=== PATIENT | female | born 1955 | race Caucasian/White ===

== ENCOUNTER 2019-12-22 17:13 | Inpatient (IN) | payer OTHER ==
--- NOTE | 2019-12-22 18:24 | RAD REPORT ---
EXAM DESCRIPTION: RAD - Chest Single View - 12/22/2019 6:15 pm CLINICAL HISTORY: AMS, UTI Chest pain. COMPARISON: CHEST PA AND LAT 2 VIEW dated 05/31/2015; CHEST SINGLE VIEW dated 03/26/2013 FINDINGS: Portable technique limits examination quality. The lungs are underinflated, resulting in vascular crowding. The heart is normal in size. No displace d fractures.
--- NOTE | 2019-12-22 18:33 | RAD REPORT ---
EXAM DESCRIPTION: CT - Head Brain Wo Cont - 12/22/2019 6:22 pm CLINICAL HISTORY: AMS Headache, drowsiness COMPARISON: Head Brain Wo Cont dated 08/26/2017; HEAD BRAIN W O CONTRAST dated 11/04/2008 TECHNIQUE: All CT scans are performed using dose optimization technique as appropriate and may inclu de automated exposure control or mA/KV adjustment according to patient size. FINDINGS: No intracranial hemorrhage, hydrocephalus or extra-axial fluid collection.There has been p rogressive brain atrophy since prior study with ex vacuo ventriculomegaly.No areas of brain edema or evidence of midline shift. The paranasal sinuses and mastoids are clear. The calvarium is intact. IMPRESSION: No acute intracranial abnormality. Moderate progressive brain atrophy is seen since the comparative study
[2019-12-22] MEDS ORDERED: NA CHLORIDE 0.9% 500 ML ONE (18:52)
[2019-12-22 19:33] LABS: Absolute Lymphocytes (CBC) 1.8 K/uL (0.7-4.9); Albumin 3.1 g/dL (3.4-5.0); Basophils % 0.3 % (0-1.3); Bilirubin Direct 0.4 mg/dL (0-0.2); Bilirubin Total 0.9 mg/dL (0.2-1.0); CKMB Creatine Kinase MB 1.3 ng/mL (0.3-3.6); Hematocrit 27.8 % (36.0-45.0); Lymphocytes % 15.5 % (15.3-44.8); MPV 9.3 fL (7.6-11.3); Potassium 3.3 mmol/L (3.5-5.1); Protein, Total 8.7 g/dL (6.4-8.2); RBC Red Blood Cell Count 3.29 M/uL (3.86-4.86); Troponin (Emerg Dept Use Only) 0.05 ng/mL (0.0-0.045)
[2019-12-22 19:35] LABS: Protime INR 1.27
[2019-12-22] MEDS ORDERED: POTASSIUM 25 MEQ EFFERV TAB ONE (20:34)
[2019-12-22 20:57] LABS: Urine Blood TRACE (NEG); Urine Glucose NEGATIVE (NEG); Urine Protein 2+ (NEG); Urine pH 5.5 (5.0-7.0)
[2019-12-22 21:06] LABS: Urine Coarse Granular Casts 0-5 /LPF (NONE SEEN)
[2019-12-22 21:07] LABS: Urine Bacteria 20-50 /HPF (<20); Urine Culture Reflex Order REFLEXED; Urine RBC <5 /HPF (NONE SEEN)
--- NOTE | 2019-12-22 21:19 | ER ---
Nurse's Notes [facility] Name: Rochelle Henderson Age: 64 yrs Sex: Female : 1955 Arrival Date: 12/22/2019 Time: 17:31 Bed 8 Private MD: Diagnosis: Urinary tract infection, site not specified;Dehydration;Rhabdomyolysis;Altered mental status, unspecified Presentation: 12/22 17:32 Presenting complaint: EMS states: SENT FROM [facility] FOR UTI. bp Transition of care: patient was received from another setting of care (long-term care facility), [facility]. Onset of symptoms is unknown. Risk Assessment: Do you want to hurt yourself or someone else? Patient reports no desire to harm self or others. Initial Sepsis Screen: Does the patient meet any 2 criteria? Altered Mental Status. No. Patient's initial sepsis screen is negative. Does the patient have a suspected source of infection? Yes: Dysuria/Frequency/Urgency/UTI. Care prior to arrival: IV initiated. 20 GA, in the left antecubital area, Glucose check: 178. 17:32 Method Of Arrival: EMS: [facility] bp 17:32 Acuity: OPAL 3 bp Triage Assessment: 17:32 General: Appears in no apparent distress. comfortable, Behavior is CONFUSED. Pain: bp Unable to use pain scale. Does not appear to understand pain scale. EENT: No deficits noted. Neuro: Level of Consciousness is awake, confused, Oriented to person, place. Cardiovascular: No deficits noted. Respiratory: No deficits noted. GI: No signs and/or symptoms were reported involving the gastrointestinal system. : No signs and/or symptoms were reported regarding the genitourinary system. Derm: No deficits noted. Musculoskeletal: No deficits noted. Historical: - Allergies: 17:48 Biaxin; bp 17:48 Sulfa (Sulfonamide Antibiotics); bp - Home Meds: 17:48 Unable to obtain [Active]; bp - PMHx: 17:48 Dementia; bp - Immunization history:: Adult Immunizations up to date. - Coronavirus screen:: The patient has NOT traveled to [place], [place], or [place] in the past 14 days. The patient has NOT had contact with known/suspected case of Coronavirus?. - Social history:: Smoking status: Patient denies any tobacco usage or history of. - Ebola Screening: : No symptoms or risks identified at this time. Screenin:32 Abuse screen: Denies threats or abuse. Denies injuries from another. Nutritional bp screening: No deficits noted. Tuberculosis screening: No symptoms or risk factors identified. Fall Risk None identified. Assessment: 17:32 General: SEE TRIAGE NOTE. bp 18:20 Reassessment: PT RETURNED FROM CT. PT REMAINS DISORIENTED AND UNCOOPERATIVE WITH ALL bp HEALTH CARE ACTIVITIES AND STAFF REQUESTS. FAMILY AT B/S ASSISTING WITH PT COMPLIANCE. 19:10 Reassessment: Patient appears in no apparent distress at this time. Patient and/or jb4 family updated on plan of care and expected duration. Pain level reassessed. Pt is A\T\Ox1 to self, family at the bedside reports this as being her normal. Respirations are even and unlabored. 20:00 Reassessment: Patient appears in no apparent distress at this time. No changes from jb4 previously documented assessment. Patient and/or family updated on plan of care and expected duration. Pain level reassessed. 21:00 Reassessment: Patient appears in no apparent distress at this time. No changes from jb4 previously documented assessment. Patient and/or family updated on plan of care and expected duration. Pain level reassessed. 22:00 Reassessment: Patient appears in no apparent distress at this time. No changes from jb4 previously documented assessment. Patient and/or family updated on plan of care and expected duration. Pain level reassessed. 23:00 Reassessment: Patient appears in no apparent distress at this time. No changes from jb4 previously documented assessment. Patient and/or family updated on plan of care and expected duration. Pain level reassessed. 12/23 00:00 Reassessment: Patient appears in no apparent distress at this time. No changes from jb4 previously documented assessment. Patient and/or family updated on plan of care and expected duration. Pain level reassessed. 00:57 Reassessment: Attempted to call report, on hold for 15 minutes, instructed to wait for [facility] call back. 01:30 Reassessment: Patient appears in no apparent distress at this time. Patient and/or jb4 family updated on plan of care and expected duration. Pain level reassessed. PT resting in bed, remains A\T\O to self. Family remains at the bedside. respirations even and unlabored. Vital Signs: 12/22 17:32 BP 95 / 60; Pulse 89; Resp 17; Temp 97.9; Pulse Ox 98% ; Weight 54.43 kg; bp 18:07 BP 100 / 58; Pulse 75; Resp 18; Pulse Ox 100% ; bp 18:45 BP 101 / 51; Pulse 73; Resp 16; Pulse Ox 99% ; bp 19:30 BP 102 / 57; Pulse 72; Resp 16; Pulse Ox 100% on R/A; jb4 20:30 BP 107 / 64; Pulse 76; Resp 16; Pulse Ox 96% on R/A; jb4 21:30 BP 101 / 66; Pulse 78; Resp 16; Pulse Ox 97% on R/A; jb4 22:30 BP 103 / 89; Pulse 83; Resp 16; Pulse Ox 97% on R/A; jb4 23:30 BP 104 / 67; Pulse 85; Resp 16; Pulse Ox 99% on R/A; jb4 12/23 00:30 BP 100 / 81; Pulse 75; Resp 16; Pulse Ox 100% on R/A; jb4 ED Course: 12/22 17:31 Patient arrived in ED. bp 17:32 Arm band placed on. bp 17:32 Patient has correct armband on for positive identification. Bed in low position. Call bp light in reach. Side rails up X2. Adult w/ patient. 17:35 Maintain EMS IV. Dressing intact. Good blood return noted. Site clean \T\ dry. Gauge \T\ bp site: 20 GAUGE LEFT AC. 17:39 Julio Pritchett NP is PHCP. pm1 17:39 Zaire Lujan MD is Attending Physician. pm1 17:46 Bennett Gomes, JENNYFER is Primary Nurse. bp 17:47 Triage completed. bp 18:19 Chest Single View XRAY In Process Unspecified. EDMS 18:23 CT Head Brain wo Cont In Process Unspecified. EDMS 18:45 Inserted saline lock: 20 gauge in right wrist, using aseptic technique. Blood collected.aa5 18:45 Initial lab(s) drawn, by me, sent to lab. First set of blood cultures drawn by me. aa5 21:16 Ken Mendoza MD is Hospitalizing Provider. pm1 12/23 01:30 No provider procedures requiring assistance completed. Patient admitted, IV remains in jb4 place. Administered Medications: 12/22 17:59 CANCELLED (Physician Discretion): NS 0.9% (30 ml/kg) 30 ml/kg IV at bolus once; Sepsis pm1 Protocol 18:52 Drug: NS 0.9% 500 ml Route: IV; Rate: bolus; Site: right wrist; bp 21:00 Drug: Potassium Effervescent Tablet 50 mEq Route: PO; jb4 21:30 Follow up: Response: No adverse reaction 4 21:50 Drug: NS 0.9% 1000 ml Route: IV; Rate: 100 ml/hr; Site: right hand; jb4 12/23 00:33 Follow up: Response: No adverse reaction; IV Status: Infusion continued upon transfer jb4 12/22 21:50 Drug: Rocephin 1 grams Route: IV; Rate: calculated rate; Site: right hand; jb4 21:52 Follow up: Response: No adverse reaction; IV Status: Completed infusion; IV Intake: [id number] Intake: 21:52 IV: 10ml; Total: 10ml. jb4 Outcome: 21:18 Decision to Hospitalize by Provider. pm1 12/23 01:30 Admitted to Tele accompanied by nurse, via stretcher, room 412, with chart, Report jb4 called to JENNYFER Cobb Condition: stable Discharge instructions given to family, Instructed on the need for admit, Demonstrated understanding of instructions. 01:32 Patient left the ED. jb4 Signatures: Dispatcher [employer] Katarina Eugene, RN RN aa5 Julio Pritchett, RENAL DIALYSIS TECHNICIAN RENAL DIALYSIS TECHNICIAN pm1 Spencer Cavazos RN RN jb4 Bennett Gomes RN RN bp Corrections: (The following items were deleted from the chart) 12/22 17:47 17:32 Presenting complaint: bp bp
--- NOTE | 2019-12-22 21:19 | EDPHYS ---
Physician Documentation [facility] Name: Rochelle Henderson Age: 64 yrs Sex: Female : 1955 Arrival Date: 12/22/2019 Time: 17:31 Bed 8 Private MD: ED Physician Zaire Lujan HPI: 12/22 18:06 This 64 yrs old Female presents to ER via EMS with complaints of Altered pm1 mental status, Urinary Problem. 18:06 The patient presents with decreased mental status. Onset: The symptoms/episode pm1 began/occurred 4 day(s) ago. Possible causes: UTI. 18:06 Associated signs and symptoms: Pertinent positives: Decreased appetite, occasional pm1 vomiting, and one episode of diarrhea, Pertinent negatives:. Current symptoms: In the emergency department the patient's symptoms have improved, appears to be at her baseline. Patient's baseline: Neuro: not alert, Motor: no deficits, The patient has a previous history of Frontotemporal Degeneration Dementia. Patient with decreased appetite on and she typically has no impulse control to eating so they figured something was wrong. Had foul smelling urine. Did their own urine dip stick and called Dr. Becker for ABX therapy. He prescribed Macrobid but it appeared that the patient did not improve. Has had a fall with no apparent injury but unknown down time. Historical: - Allergies: 17:48 Biaxin; bp 17:48 Sulfa (Sulfonamide Antibiotics); bp - Home Meds: 17:48 Unable to obtain [Active]; bp - PMHx: 17:48 Dementia; bp - Immunization history:: Adult Immunizations up to date. - Coronavirus screen:: The patient has NOT traveled to [place], [place], or [place] in the past 14 days. The patient has NOT had contact with known/suspected case of Coronavirus?. - Social history:: Smoking status: Patient denies any tobacco usage or history of. - Ebola Screening: : No symptoms or risks identified at this time. ROS: 18:06 Unable to obtain ROS due to baseline dementia. pm1 18:06 Unable to obtain ROS due to information obtained from daugther. 18:06 Constitutional: Negative for fever, chills, and weight loss, Positive for weight gain pm1 18:06 MS/Extremity: Negative for injury and deformity, Skin: Negative for injury, rash, and discoloration. 18:06 Eyes: Negative for injury, pain, redness, and discharge, ENT: Negative for injury, pain, and discharge, Neck: Negative for injury, pain, and swelling, Cardiovascular: Negative for chest pain, palpitations, and edema, Respiratory: Negative for shortness of breath, cough, wheezing, and pleuritic chest pain, Abdomen/GI: Negative for abdominal pain, nausea, vomiting, diarrhea, and constipation, Back: Negative for injury and pain. 18:06 : Positive for foul smelling urine. 18:06 Neuro: Positive for altered mental status, generalized weakness. Exam: 18:06 Head/Face: Normocephalic, atraumatic. pm1 18:06 Neck: Trachea midline, no thyromegaly or masses palpated, and no cervical lymphadenopathy. Supple, full range of motion without nuchal rigidity, or vertebral point tenderness. No Meningismus. Chest/axilla: Normal chest wall appearance and motion. Nontender with no deformity. No lesions are appreciated. Cardiovascular: Regular rate and rhythm with a normal S1 and S2. No gallops, murmurs, or rubs. No pulse eficits. Respiratory: Lungs have equal breath sounds bilaterally, clear to auscultation and percussion. No rales, rhonchi or wheezes noted. No increased work of breathing, no retractions or nasal flaring. Abdomen/GI: Soft, non-tender, with normal bowel sounds. No distension or tympany. No guarding or rebound. No evidence of tenderness throughout. Back: No spinal tenderness. No costovertebral tenderness. Full range of motion. Skin: Warm, dry with normal turgor. Normal color with no rashes, no lesions, and no evidence of cellulitis. MS/ Extremity: Pulses equal, no cyanosis. Neurovascular intact. Full, normal range of motion. 18:06 Constitutional: The patient appears awake, non-diaphoretic, non-toxic, well developed, well hydrated, well groomed, well nourished. 18:06 Eyes: Periorbital structures: appear normal, Extraocular movements: intact throughout, Conjunctiva: normal. 18:06 ENT: External ear(s): are unremarkable, Ear canal(s): are normal, TM's: are normal, Nose: is normal. 18:06 Neuro: Orientation: unable to test, family reports at her baseline, Motor: moves all fours. Vital Signs: 17:32 BP 95 / 60; Pulse 89; Resp 17; Temp 97.9; Pulse Ox 98% ; Weight 54.43 kg; bp 18:07 BP 100 / 58; Pulse 75; Resp 18; Pulse Ox 100% ; bp 18:45 BP 101 / 51; Pulse 73; Resp 16; Pulse Ox 99% ; bp 19:30 BP 102 / 57; Pulse 72; Resp 16; Pulse Ox 100% on R/A; jb4 20:30 BP 107 / 64; Pulse 76; Resp 16; Pulse Ox 96% on R/A; jb4 21:30 BP 101 / 66; Pulse 78; Resp 16; Pulse Ox 97% on R/A; jb4 22:30 BP 103 / 89; Pulse 83; Resp 16; Pulse Ox 97% on R/A; jb4 23:30 BP 104 / 67; Pulse 85; Resp 16; Pulse Ox 99% on R/A; jb4 12/23 00:30 BP 100 / 81; Pulse 75; Resp 16; Pulse Ox 100% on R/A; jb4 MDM: 12/22 17:41 Patient medically screened. pm1 21:15 Data reviewed: vital signs. Data interpreted: Pulse oximetry: on room air is 100 %. pm1 Interpretation: normal. Counseling: I had a detailed discussion with the patient and/or guardian regarding: the historical points, exam findings, and any diagnostic results supporting the discharge/admit diagnosis, lab results, radiology results, the need for further work-up and treatment in the hospital. 21:26 Physician consultation: Ken Mendoza MD was called at 21:26, was contacted at 21:26, pm1 regarding admission, patient's condition, and will see patient. 12/22 17:59 Order name: Amylase, Serum; Complete Time: 19:41 pm1 12/22 17:59 Order name: Basic Metabolic Panel; Complete Time: 19:41 pm1 12/22 17:59 Order name: Blood Culture Adult (2) pm1 12/22 17:59 Order name: CBC with Diff; Complete Time: 19:41 pm1 12/22 17:59 Order name: Ckmb; Complete Time: 19:41 pm1 12/22 17:59 Order name: CPK; Complete Time: 19:41 pm12/22 17:59 Order name: Lactate; Complete Time: 19:41 pm12/22 17:59 Order name: LFT's; Complete Time: 19:41 pm12/22 17:59 Order name: Lipase; Complete Time: 19:41 pm12/22 17:59 Order name: Procalcitonin; Complete Time: 20:19 pm12/22 17:59 Order name: Protime (+inr); Complete Time: 19:41 pm12/22 17:59 Order name: Ptt, Activated; Complete Time: 19:41 pm12/22 17:59 Order name: Troponin (emerg Dept Use Only); Complete Time: 19:41 pm12/22 17:59 Order name: Urine Microscopic Only; Complete Time: 21:11 pm12/22 17:59 Order name: Chest Single View XRAY; Complete Time: 19:01 pm12/22 17:59 Order name: Accucheck; Complete Time: 18:42 pm12/22 17:59 Order name: CT Head Brain wo Cont; Complete Time: 19:01 12/22 20:36 Order name: Urine Dipstick--Ancillary (enter results); Complete Time: 21:03 2 12/22 21:11 Order name: Urine Culture [facility] 12/22 22:56 Order name: CONS Pharmacy Consult [facility] 12/22 22:56 Order name: Regular [facility] 12/22 22:56 Order name: CBC with Automated Diff [facility] 12/22 22:56 Order name: CBC with Automated Diff [facility] 12/22 22:56 Order name: Comprehensive Metabolic Panel [facility] 12/22 22:56 Order name: Comprehensive Metabolic Panel [facility] 12/22 17:59 Order name: Cardiac monitoring; Complete Time: 18:42 pm12/22 17:59 Order name: EKG - Nurse/Tech; Complete Time: 20:27 pm12/22 17:59 Order name: IV Saline Lock - Large Bore; Complete Time: 18:42 pm12/22 17:59 Order name: Labs collected and sent; Complete Time: 18:42 pm12/22 17:59 Order name: O2 Per Protocol; Complete Time: 18:42 pm12/22 17:59 Order name: O2 Sat Monitoring; Complete Time: 18:43 pm1 12/22 17:59 Order name: Urine Dipstick-Ancillary (obtain specimen); Complete Time: 20:27 pm1 12/22 18:50 Order name: Straight Cath - Urine; Complete Time: 21:13 iw Administered Medications: 17:59 CANCELLED (Physician Discretion): NS 0.9% (30 ml/kg) 30 ml/kg IV at bolus once; Sepsis pm1 Protocol 18:52 Drug: NS 0.9% 500 ml Route: IV; Rate: bolus; Site: right wrist; bp 21:00 Drug: Potassium Effervescent Tablet 50 mEq Route: PO; [facility] 21:30 Follow up: Response: No adverse reaction [facility] 21:50 Drug: NS 0.9% 1000 ml Route: IV; Rate: 100 ml/hr; Site: right hand; [facility] 12/23 00:33 Follow up: Response: No adverse reaction; IV Status: Infusion continued upon transfer [facility] 12/22 21:50 Drug: Rocephin 1 grams Route: IV; Rate: calculated rate; Site: right hand; [facility] 21:52 Follow up: Response: No adverse reaction; IV Status: Completed infusion; IV Intake: [id number] Disposition: 12/23 09:00 Co-signature as Attending Physician, Zaire Lujan MD I agree with the assessment and [facility] plan of care. Disposition: 12/22/19 21:18 Hospitalization ordered by Ken Mendoza for Inpatient Admission. Preliminary diagnosis are Urinary tract infection, site not specified, Dehydration, Rhabdomyolysis, Altered mental status, unspecified. - Bed requested for Telemetry/MedSurg (Inpatient). - Status is Inpatient Admission. jb4 - Condition is Stable. - Problem is new. - Symptoms have improved. UTI on Admission? Yes Signatures: Dispatcher [employer] EDZaire Gibson MD MD cha Williams, Irene, RN RN iw Garcia, Cindy, RN RN cg Marinas, Patrick, NP VENDER pm1 Spencer Cavazos RN RN jb4 Peltier, Brian, RN RN bp Corrections: (The following items were deleted from the chart) 12/22 17:59 17:59 NS 0.9% (30 ml/kg) 30 ml/kg IV at bolus once; Sepsis Protocol ordered. pm1 pm1 21:47 18:06 This 64 yrs old Female presents to ER via EMS with complaints of pm1 Urinary Problem. pm1 23:13 21:18 Hospitalization Ordered by Ken Mendoza MD for Inpatient Admission. Preliminary cg diagnosis is Urinary tract infection, site not specified; Dehydration; Rhabdomyolysis; Altered mental status, unspecified. Bed requested for Telemetry/MedSurg (Inpatient). Status is Inpatient Admission. Condition is Stable. Problem is new. Symptoms have improved. UTI on Admission? Yes. pm1 12/23 01:32 12/22 23:13 12/22/2019 21:18 Hospitalization Ordered by Ken Mendoza MD for Inpatient jb4 Admission. Preliminary diagnosis is Urinary tract infection, site not specified; Dehydration; Rhabdomyolysis; Altered mental status, unspecified. Bed requested for Telemetry/MedSurg (Inpatient). Status is Inpatient Admission. Condition is Stable. Problem is new. Symptoms have improved. UTI on Admission? Yes. cg
[2019-12-22] MEDS ORDERED: CEFTRIAXONE/SWI 1gm 1 GM/10 ML SYR ONE (21:33)
[2019-12-22] MEDS ORDERED: NA CHLORIDE 0.9% 1,000 ML ONE (21:33)
[2019-12-22] MEDS ORDERED: ONDANSETRON 4 MG/2 ML VIAL IV PRN (22:54)
[2019-12-22] MEDS ORDERED: MORPHINE 2 MG/ML SYR IV PRN (22:54)
[2019-12-22] MEDS ORDERED: ACETAMINOPHEN 500 MG TAB PO PRN (22:54)
[2019-12-23] MEDS: NA CHLORIDE 0.9% 1,000 ML IV SCH ×3 (02:00→21:34)
[2019-12-23 02:46] VITALS: BMI 20.5
[2019-12-23 04:17] LABS: Absolute Lymphocytes (CBC) 0.9 K/uL (0.7-4.9); Basophils % 0.2 % (0-1.3); Hematocrit 31.3 % (36.0-45.0); Lymphocytes % 11.4 % (15.3-44.8)
[2019-12-23 04:36] LABS: Albumin 2.6 g/dL (3.4-5.0); Bilirubin Total 0.6 mg/dL (0.2-1.0); Potassium 3.7 mmol/L (3.5-5.1); Protein, Total 7.6 g/dL (6.4-8.2)
--- NOTE | 2019-12-23 07:51 | P.HP ---
Certification for Inpatient Patient admitted to: Observation With expected LOS: <2 Midnights Patient will require the following post-hospital care: None Practitioner: I am a practitioner with admitting privileges, knowledge of patient current condition, hospital course, and medical plan of care. Services: Services provided to patient in accordance with Admission requirements found in Title 42 Section 412.3 of the Code of Federal Regulations Patient History Date of Service: 12/22/19 Reason for admission: UTI; altered mental status; dehydration History of Present Illness: Patient is a 64-year-old female who has a history of outlined as dementia. She was diagnosed at the age of 62. she has been living at the Memory Care Unit at [facility]. Her family had noted she was not herself over the last couple of days. She had a urinalysis /urine dipstick performed and oral antibiotics were started. This was started by a nurse practitioner in the local area. Patient became unresponsive, and her granddaughter called EMS because they were not able to move her. Patient was brought to the hospital for further evaluation. Allergies levofloxacin [From Levaquin] Allergy (Mild, Verified 03/26/13 12:17) Itching/Hives/Rash Sulfa (Sulfonamide Antibiotics) Allergy (Mild, Verified 03/26/13 12:17) Hives/Rash sulfamethoxazole [From Bactrim] Allergy (Mild, Verified 03/26/13 12:17) Itching/Hives/Rash trimethoprim [From Bactrim] Allergy (Mild, Verified 03/26/13 12:17) Itching/Hives/Rash clarithromycin [From Biaxin] Allergy (Unverified 06/03/15 17:15) Unknown Home Medications: Melatonin 2 tab PO BEDTIME 12/23/19 Nitrofurantoin Monohyd/M-Cryst [Macrobid 100 mg Capsule] 100 mg PO BID 12/23/19 Olanzapine [Zyprexa] 5 mg PO BEDTIME 12/23/19 Sertraline HCl 100 mg PO DAILY 12/23/19 - Past Medical/Surgical History Has patient received pneumonia vaccine in the past: No Diabetic: No -: dementia Past Surgical History: Unable to obtain - Family History Mother Medical History: Diabetes Notes: DEMENTIA Father Medical History: Diabetes, Cancer - Social History Smoking Status: Never smoker Alcohol use: No CD- Drugs: No Caffeine use: No Place of Residence: [place] Review of Systems 10-point ROS is otherwise unremarkable Physical Examination - Vital Signs Temperature: 97.7 F Blood Pressure: 109/55 Pulse: 90 Respirations: 16 Pulse Ox (%): 98 - Physical Exam General: Alert, Demented HEENT: Atraumatic, PERRLA, Mucous membr. moist/pink, EOMI, Sclerae nonicteric Neck: Supple, 2+ carotid pulse no bruit, No LAD, Without JVD or thyroid abnormality Respiratory: Clear to auscultation bilaterally, Normal air movement Cardiovascular: Regular rate/rhythm, Normal S1 S2, No murmurs Gastrointestinal: Normal bowel sounds, Soft and benign, Non-distended, No tenderness Musculoskeletal: No clubbing, No swelling, No tenderness Integumentary: No rashes Neurological: Normal gait, Normal speech, Normal tone, Sensation intact, Cranial nerves 3-12 intact, Normal affect, Abnormal strength ( Patient with generalized weakness -4/5) Lymphatics: No axilla or inguinal lymphadenopathy - Studies Laboratory Data (last 24 hrs) 12/22/19 18:45: PT 14.9 H, INR 1.27, APTT 35.1 12/22/19 18:45: WBC 11.4 H, Hgb 9.3 L, Hct 27.8 L, Plt Count 283 12/22/19 18:45: Sodium 142, Potassium 3.3 L, BUN 25 H, Creatinine 1.15, Glucose 107 H, Total Bilirubin 0.9, AST 78 H, ALT 56, Alkaline Phosphatase 86, Amylase 94, Lipase 159 Microbiology Data (last 24 hrs): 12/22/19 19:05 Blood - Blood Anaerobic Blood Culture - Final Assessment & Plan - Problems (Diagnosis) (1) Toxic encephalopathy Current Visit: Yes Status: Acute (2) Altered mental status Current Visit: Yes Status: Acute (3) Urinary tract infection Current Visit: Yes Status: Acute (4) 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 IV fluids and IV antibiotics 2. UA with microscopy and urine cultures 3. physical therapy evaluation 4. await culture results 5. monitor renal function 6. GI and DVT prophylaxis Discharge Plan: Home Plan to discharge in: 48 Hours - Advance Directives Does patient have a Living Will: No Does patient have a Durable POA for Healthcare: No - Code Status/Comfort Care Code Status Assessed: Yes Code Status: Full Code Critical Care: No Time Spent Managing PTS Care (In Minutes): 50
--- NOTE | 2019-12-23 15:54 | P.PN ---
Subjective Date of Service: 12/23/19 Chief Complaint: UTI; altered mental status; dehydration Patient is more awake and interactive today. She has poor memory. She denies any complain. No issues overnight. No agitation reported. Physical Examination - Vital Signs Temperature: 97.7 F Blood Pressure: 102/57 Pulse: 83 Respirations: 15 Pulse Ox (%): 95 - Physical Exam General: In no apparent distress, Demented HEENT: Normocephalic, Mucous membr. moist/pink Neck: Supple, JVD not distended Respiratory: Clear to auscultation bilaterally, Normal air movement Cardiovascular: No edema, Regular rate/rhythm, Normal S1 S2 Gastrointestinal: Normal bowel sounds, Non-distended Integumentary: No rashes Neurological: Normal speech, Other (Nonfocal.) - Studies Laboratory Data (last 24 hrs) 12/22/19 18:45: PT 14.9 H, INR 1.27, APTT 35.1 12/22/19 18:45: WBC 11.4 H, Hgb 9.3 L, Hct 27.8 L, Plt Count 283 12/22/19 18:45: Sodium 142, Potassium 3.3 L, BUN 25 H, Creatinine 1.15, Glucose 107 H, Total Bilirubin 0.9, AST 78 H, ALT 56, Alkaline Phosphatase 86, Amylase 94, Lipase 159 Microbiology Data (last 24 hrs): 12/22/19 19:05 Blood - Blood Anaerobic Blood Culture - Final Assessment And Plan - Current Problems (Diagnosis) (1) Altered mental status Current Visit: Yes Status: Acute (2) 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 Continue IV Rocephin Follow urine culture Continue Zoloft. Hold olanzapine. Will consider risperidone was less sedating the patient get agitation. Periodically reorientation. Continue melatonin for insomnia.
--- NOTE | 2019-12-23 15:57 | EKG ---
Test Date: 2019-12-22 Test Time: 20:19:51 Surgical Orderly: PHIL MEASUREMENT RESULTS: Intervals: Rate: 77 WY: 88 QRSD: 86 QT: 434 QTc: 491 [place]: P: 39 WY: 88 QRS: 59 T: 46 INTERPRETIVE STATEMENTS: Sinus rhythm with short [place] Prolonged QT Abnormal ECG Compared to ECG 08/26/2017 12:07:02 Short [place] interval now present Prolonged QT interval now present Electronically Signed On 12-23-19 15:52:17 AUDIO RECORDING ENGINEER by Ceasar Dennis
[2019-12-23] MEDS: CEFTRIAXONE/SWI 1gm 1 GM/10 ML SYR IV SCH (20:18)
[2019-12-23] MEDS: MELATONIN 5 MG TABLET PO SCH (20:19)
[2019-12-23] MEDS ORDERED: MELATONIN PO SCH (21:00)
[2019-12-23] MEDS ORDERED: OLANZapine 2.5 MG TAB ONE (22:29)
[2019-12-23] MEDS ORDERED: OLANZapine 10 MG TABLET PO SCH (23:00)
[2019-12-24] MEDS: NA CHLORIDE 0.9% 1,000 ML IV SCH ×2 (01:40→11:03)
[2019-12-24 05:37] LABS: Absolute Lymphocytes (CBC) 1.3 K/uL (0.7-4.9); Basophils % 0.3 % (0-1.3); Hematocrit 30.3 % (36.0-45.0); Lymphocytes % 16.9 % (15.3-44.8); MPV 8.8 fL (7.6-11.3); RBC Red Blood Cell Count 3.49 M/uL (3.86-4.86)
[2019-12-24 05:58] LABS: Potassium 3.8 mmol/L (3.5-5.1)
[2019-12-24] MEDS: SERTRALINE HCL 100 MG TAB PO SCH (09:13)
[2019-12-24 09:33] VITALS: O2SAT 98
--- NOTE | 2019-12-24 13:18 | P.PN ---
Subjective Date of Service: 12/24/19 Chief Complaint: UTI; altered mental status; dehydration Family reports poor oral intake and increased sleepiness to today. Of note patient was initially on Seroquel which was recently switched to olanzapine. Seroquel and olanzapine can both be quite sedating. Urine culture reviewed and reporting no growth to date. No issues overnight. No agitation reported. Physical Examination - Vital Signs Temperature: 97.3 F Blood Pressure: 110/70 Pulse: 73 Respirations: 14 Pulse Ox (%): 97 - Physical Exam General: In no apparent distress, Demented, Confused, Other (Patient refused full examination) HEENT: Mucous membr. moist/pink Neck: Supple Cardiovascular: No edema Musculoskeletal: No swelling Integumentary: No rashes Neurological: Other (Nonfocal. 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 Urine culture: No growth to date Continue IV Rocephin Follow urine culture Continue Zoloft and olanzapine. I discussed the option of changing olanzapine to risperidone was less sedating. Periodically reorientation. Continue melatonin for insomnia. Feed as tolerated.
[2019-12-24] MEDS ORDERED: OLANZapine 10 MG TABLET PO SCH (21:00)
[2019-12-24] MEDS: CEFTRIAXONE/SWI 1gm 1 GM/10 ML SYR IV SCH (21:30)
[2019-12-24] MEDS: MELATONIN 5 MG TABLET PO SCH (21:30)
[2019-12-24] MEDS: OLANZapine 2.5 MG TAB PO SCH (21:31)
[2019-12-25 04:17] LABS: Absolute Lymphocytes (CBC) 1.4 K/uL (0.7-4.9); Basophils % 0.2 % (0-1.3); Lymphocytes % 19.7 % (15.3-44.8); MPV 8.9 fL (7.6-11.3); RBC Red Blood Cell Count 3.47 M/uL (3.86-4.86)
[2019-12-25] MEDS: NA CHLORIDE 0.9% 1,000 ML IV SCH ×3 (04:20→20:29)
[2019-12-25 04:32] LABS: Potassium 3.6 mmol/L (3.5-5.1)
[2019-12-25] MEDS: SERTRALINE HCL 100 MG TAB PO SCH (09:10)
--- NOTE | 2019-12-25 15:48 | P.DS ---
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 Urine dipstick was performed of the unit and patient noted to have urinary tract infection. She took 2 doses of Macrobid without improvement and was therefore referred to the emergency department. Urinalysis done in the emergency department suggested the presence of UTI. Patient had mild leukocytosis but afebrile and did not meet criteria for sepsis. She was admitted for further management. Hospital Course: Patient admitted to the medical floor and treated for UTI with IV Rocephin. Urine culture yielded no growth. No agitation noted during the hospital stay. Family felt patient has significantly declined in terms of function and her mental status. Her oral intake has been inadequate. Family inquired about hospice. Patient was seen and evaluated by hospice and deemed appropriate for hospice at this time. Patient is deemed clinically stable for discharge to hospice. She is prescribed Cefpodoxime to complete 5 days of treatment for UTI. Vital Signs/Physical Exam: Temp Pulse Resp BP Pulse Ox 96.7 F L 71 18 128/60 97 12/25/19 12:00 12/25/19 12:00 12/25/19 12:00 12/25/19 12:00 12/25/19 12:00 General: Confused, Other (Awake) HEENT: Mucous membr. moist/pink, Sclerae nonicteric Neck: Supple, JVD not distended Respiratory: Clear to auscultation bilaterally, Normal air movement Cardiovascular: No edema, Regular rate/rhythm, Normal S1 S2 Gastrointestinal: Normal bowel sounds, Soft and benign, No tenderness Musculoskeletal: No erythema Integumentary: No rashes Neurological: Dementia Laboratory Data at Discharge: WBC 7.3 K/uL (4.3-10.9) 12/25/19 03:30 Hgb 10.0 g/dL (12.0-15.0) L 12/25/19 03:30 Hct 30.0 % (36.0-45.0) L 12/25/19 03:30 Plt Count 227 K/uL (152-406) 12/25/19 03:30 PT 14.9 SECONDS (9.5-12.5) H 12/22/19 18:45 INR 1.27 12/22/19 18:45 APTT 35.1 SECONDS (24.3-36.9) 12/22/19 18:45 Sodium 143 mmol/L (136-145) 12/25/19 03:30 Potassium 3.6 mmol/L (3.5-5.1) 12/25/19 03:30 BUN 15 mg/dL (7-18) 12/25/19 03:30 Creatinine 0.69 mg/dL (0.55-1.3) 12/25/19 03:30 Glucose 101 mg/dL (74-106) 12/25/19 03:30 Total Bilirubin 0.6 mg/dL (0.2-1.0) 12/23/19 03:37 AST 57 U/L (15-37) H 12/23/19 03:37 ALT 45 U/L (12-78) 12/23/19 03:37 Alkaline Phosphatase 74 U/L (45-117) 12/23/19 03:37 Amylase 94 U/L (25-115) 12/22/19 18:45 Lipase 159 U/L (73-393) 12/22/19 18:45 Home Medications: Melatonin 2 tab PO BEDTIME 12/23/19 Olanzapine [Zyprexa] 5 mg PO BEDTIME 12/23/19 Sertraline HCl 100 mg PO DAILY 12/23/19 Cefpodoxime Proxetil 100 mg PO BID #6 tablet 12/25/19 New Medications: Cefpodoxime Proxetil 100 mg PO BID #6 tablet Diet: Regular Activity: Fall precautions Time spent managing pt's care (in minutes): 36
--- NOTE | 2019-12-25 17:33 | P.PN ---
Subjective Date of Service: 12/25/19 Chief Complaint: UTI; altered mental status; dehydration No major changes from yesterday. Patient appeared to be more interactive today Urine culture reviewed and reporting no growth to date. No issues overnight. No agitation reported. Physical Examination - Vital Signs Temperature: 96.7 F Blood Pressure: 128/60 Pulse: 71 Respirations: 18 Pulse Ox (%): 97 - Physical Exam General: In no apparent distress, Confused HEENT: Mucous membr. moist/pink Neck: Supple Respiratory: Clear to auscultation bilaterally, Normal air movement Cardiovascular: No edema, Regular rate/rhythm, Normal S1 S2 Gastrointestinal: Normal bowel sounds, Soft and benign, Non-distended, No tenderness Musculoskeletal: No swelling, No erythema Integumentary: No rashes Neurological: Normal strength at 5/5 x4 extr - Studies Microbiology Data (last 24 hrs): 12/22/19 20:28 Clean Catch Urine [place] Count - Final 12/22/19 20:28 Clean Catch Urine - Final No growth. 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 Urine culture: No growth to date Continue IV Rocephin for 1 more day to complete 3 days of treatment. Discharged with oral Cefpodoxime to complete 5 days of treatment Continue Zoloft and olanzapine. Periodically reorientation. Continue melatonin for insomnia. Feed as tolerated. Family requested for hospice. Patient has been evaluated and accepted for hospice.
[2019-12-25] MEDS: MELATONIN 5 MG TABLET PO SCH (20:28)
[2019-12-25] MEDS: CEFTRIAXONE/SWI 1gm 1 GM/10 ML SYR IV SCH (20:28)
[2019-12-25] MEDS: OLANZapine 2.5 MG TAB PO SCH (20:28)
[2019-12-26 05:35] VITALS: BP 154/69
[2019-12-26 09:27] VITALS: TEMP 96.9
== END 2019-12-26 11:37 | disposition hospice, home (50) | DRG 689 ==
LOC: ER 17:13 → ERHOLD 22:57 → 4TH 12-23 00:28 → OBSVTOIN 12-24 15:24
PROVIDERS: ADMIT Hospitalist; ATTEND Internal Medicine
DX: N39.0 Urinary tract infection, site not specified (principal); G92 Toxic encephalopathy; G30.0 Alzheimer's disease with early onset; F02.80 Dementia in other diseases classified elsewhere, unspecified severity, without behavioral disturbance, psychotic disturbance, mood disturbance, and anxiety; E86.0 Dehydration
CPT/HCPCS: 36415; 70450; 71045; 80048; 80053; 80076; 81003; 81015; 82150; 82550; 82553; 83605; 83690; 84145; 84484; 85025; 85610; 85730; 87040; 87086; 87088; 93005; 96361; 96374; 99285; G0378; J0696; J7030; J7040

== ENCOUNTER 2020-01-12 17:50 | Emergency (ER) | payer OTHER ==
[2020-01-12 19:03] LABS: Absolute Lymphocytes (CBC) 1.5 K/uL (0.7-4.9); Basophils % 0.2 % (0-1.3); Lymphocytes % 22.7 % (15.3-44.8); MPV 8.4 fL (7.6-11.3); RBC Red Blood Cell Count 4.17 M/uL (3.86-4.86)
[2020-01-12 19:19] LABS: Urine Bacteria <20 /HPF (<20); Urine RBC <5 /HPF (NONE SEEN)
[2020-01-12 19:20] LABS: Urine Amorphous Sediment 1+ /HPF (NONE SEEN); Urine Culture Reflex Order NOT NEEDED; Urine Mucus 1+ /HPF (NONE SEEN)
[2020-01-12 19:20] LABS: Urine Blood NEGATIVE (NEG); Urine Glucose NEGATIVE (NEG); Urine Protein NEGATIVE (NEG); Urine pH 5.5 (5.0-7.0)
[2020-01-12 19:25] LABS: Albumin 2.9 g/dL (3.4-5.0); Bilirubin Direct 0.1 mg/dL (0-0.2); Bilirubin Total 0.4 mg/dL (0.2-1.0); Potassium 4.1 mmol/L (3.5-5.1); Protein, Total 8.6 g/dL (6.4-8.2)
[2020-01-12] MEDS ORDERED: NA CHLORIDE 0.9% 1,000 ML ONE (19:25)
--- NOTE | 2020-01-12 20:03 | RAD REPORT ---
EXAM DESCRIPTION: CT - Abdomen Pelvis Wo Contrast - 01/12/2020 7:50 pm CLINICAL HISTORY: Abdominal pain. ABD PAIN COMPARISON: CT ABDOMEN PELVIS WO CONTRAST dated 04/07/2013 TECHNIQUE: CT imaging of the abdomen and pelvis was performed without contrast. Solid organ, bowel a nd vascular assessment is limited due to lack of IV and oral contrast. All CT scans are performed using dose optimization technique as appropriate and may include automated exposure control or mA/KV adjustment according to patient size. FINDINGS: Airspace opacity is present in the right lung base with a small right pleural effusion, blackwell spicious for infiltrate/ pneumonia. The liver, spleen, pancreas, adrenal glands and kidneys are within normal limits for a limited non-co ntrast examination. No bowel obstruction, free air, free fluid or abscess. The appendix is normal. The osseous structures are within normal limits. IMPRESSION: No acute intra-abdominal or pelvic findings. Airspace opacity in the right base with small right pleural effusion may represent pneumonia. A limited non-contrast examination was performed as detailed.
--- NOTE | 2020-01-12 21:17 | EDPHYS ---
Physician Documentation [facility] Name: Rochelle Henderson Age: 64 yrs Sex: Female : 1955 Arrival Date: 01/12/2020 Time: 17:52 Bed 20 Private MD: ED Physician Arpan Lomeli HPI: 01/12 18:19 This 64 yrs old Female presents to ER via Ambulatory with complaints of pm1 Abdominal Pain. 18:19 The patient presents with abdominal pain in the right upper quadrant. Onset: The pm1 symptoms/episode began/occurred today. Associated signs and symptoms: Pertinent positives: constipation, last know BM according to family members, Pertinent negatives: nausea, vomiting, and diarrhea. The symptoms are described as vague. Modifying factors: the symptoms are aggravated by movement. Severity of pain:. The patient has not experienced similar symptoms in the past. Patient with reported RUQ pain per care givers at hospice facility. Historical: - Allergies: 18:04 Biaxin; hb 18:04 Sulfa (Sulfonamide Antibiotics); hb 18:04 Shellfish Containing Products; hb - PMHx: 18:04 Dementia; hb - Immunization history:: Adult Immunizations up to date. - Coronavirus screen:: The patient has NOT traveled to [place] in the past 14 days. The patient has NOT had contact with known/suspected case of Coronavirus? Proceed with normal triage procedures. - Social history:: Smoking status: Patient denies any tobacco usage or history of. - Ebola Screening: : No symptoms or risks identified at this time. ROS: 18:19 Constitutional: Negative for fever, chills, and weight loss. pm1 18:19 : Negative for injury, bleeding, discharge, and swelling, MS/Extremity: Negative for injury and deformity, Neuro: Negative for headache, weakness, numbness, tingling, and seizure. 18:19 Abdomen/GI: Positive for abdominal pain, constipation, of the right upper quadrant, Negative for nausea, vomiting, and diarrhea. 18:19 All other systems are negative. 18:19 Unable to obtain ROS due to baseline dementia, obtained from family. Exam: 18:19 Constitutional: This is a well developed, well nourished patient who is awake, alert, pm1 and in no acute distress. Head/Face: Normocephalic, atraumatic. Chest/axilla: Normal chest wall appearance and motion. Nontender with no deformity. No lesions are appreciated. Cardiovascular: Regular rate and rhythm with a normal S1 and S2. No gallops, murmurs, or rubs. Normal PMI, no JVD. No pulse deficits. Respiratory: Lungs have equal breath sounds bilaterally, clear to auscultation and percussion. No rales, rhonchi or wheezes noted. No increased work of breathing, no retractions or nasal flaring. 18:19 Back: No spinal tenderness. No costovertebral tenderness. Full range of motion. Skin: Warm, dry with normal turgor. Normal color with no rashes, no lesions, and no evidence of cellulitis. MS/ Extremity: Pulses equal, no cyanosis. Neurovascular intact. Full, normal range of motion. 18:19 Abdomen/GI: Inspection: abdomen appears normal, Bowel sounds: normal, Palpation: soft, in all quadrants, mild abdominal tenderness, in the right upper quadrant, mass, is not appreciated. 18:19 Neuro: baseline dementia per family. Vital Signs: 18:03 BP 121 / 69; Pulse 72; Resp 16; Temp 97.1; Pulse Ox 99% on R/A; Weight 83.91 kg; Height hb 6 ft. (182.88 cm); Pain 2/10; 19:15 BP 112 / 82; Pulse 78; Resp 18; Pulse Ox 98% on R/A; wh 20:15 BP 114 / 98; Pulse 76; Resp 18; Pulse Ox 98% ; wh 21:30 BP 139 / 77; Pulse 74; Resp 18; Pulse Ox 98% on R/A; wh 18:03 Body Mass Index 25.09 (83.91 kg, 182.88 cm) hb 18:03 [facility] MDM: 18:08 Patient medically screened. pm1 20:27 Data reviewed: vital signs. Data interpreted: Pulse oximetry: on room air is 98 %. pm1 Interpretation: normal. 20:28 Counseling: I had a detailed discussion with the patient and/or guardian regarding: the pm1 historical points, exam findings, and any diagnostic results supporting the discharge/admit diagnosis, lab results, radiology results, the need for outpatient follow up, to return to the emergency department if symptoms worsen or persist or if there are any questions or concerns that arise at home. 20:55 ED course: Patient's family requested ultrasound of gallbladder due to patient's pm1 history of dementia. offered pain medication, but family refused. 21:14 ED course: Patient without cough, fever, white count. due to airspace opacity in the pm1 right base with small pleural effusion in the CT will treat for pneumonia. Treating due to patient 's severe dementia. 21:14 Counseling: I had a detailed discussion with the patient and/or guardian regarding: the pm1 historical points, exam findings, and any diagnostic results supporting the discharge/admit diagnosis, ultrasound results. 22:24 ED course: Family reports that the patient is still complaining of pain to RUQ. Offered pm1 narcotics in the ER and prescription but family refused. KRYSTA said that she receives pain mediations at hospice and will contact hospice nurse. 01/12 18:18 Order name: Basic Metabolic Panel 1 01/12 18:18 Order name: CBC with Diff 1 01/12 18:18 Order name: Creatinine for Radiology 1 01/12 18:18 Order name: Hepatic Function 1 01/12 18:18 Order name: Lipase 1 01/12 18:18 Order name: Urine Microscopic Only [facility] 01/12 19:07 Order name: CBC with Automated Diff; Complete Time: 19:08 EDDE 01/12 19:08 Order name: Urine Dipstick--Ancillary (enter results) ri 01/12 19:23 Order name: Urine Microscopic Only; Complete Time: 19:28 EDMS 01/12 19:23 Order name: Urine Dipstick-Ancillary; Complete Time: 19:28 EDDE 01/12 19:27 Order name: Basic Metabolic Panel; Complete Time: 19:28 EDDE 01/12 19:28 Order name: Liver (Hepatic) Function; Complete Time: 19:28 EDDE 01/12 19:28 Order name: Lipase; Complete Time: 19:28 EDDE 01/12 19:28 Order name: Creatinine (Radiology Only); Complete Time: 19:28 EDDE 01/12 18:18 Order name: IV Saline Lock; Complete Time: 19:14 pm1 01/12 18:18 Order name: Labs collected and sent; Complete Time: 19:14 pm1 01/12 18:18 Order name: Urine Dipstick-Ancillary (obtain specimen); Complete Time: 18:57 pm1 01/12 18:18 Order name: Straight Cath - Urine; Complete Time: 18:57 pm1 01/12 20:34 Order name: Abdomen ; Complete Time: 20:55 EDDE 01/12 20:41 Order name: US Abdomen Limited pm1 Administered Medications: 19:27 Drug: NS 0.9% 1000 ml Route: IV; Rate: 1000 ml; Site: left forearm; 21:41 Follow up: Response: No adverse reaction; IV Status: Completed infusion 21:38 Not Given (Patient Refused; family refused): Rocephin 1 grams IV at calculated rate once; Given slow IV push per pharmacy instructions 21:38 Drug: Bentyl 20 mg Route: PO; 21:41 Follow up: Response: No adverse reaction Disposition: 01/13 11:08 Co-signature as Attending Physician, Arpan Lomeli MD I agree with the assessment and tw4 plan of care. Disposition: 01/12/20 21:16 Discharged to Home. Impression: Unspecified abdominal pain. - Condition is Stable. - Discharge Instructions: Abdominal Pain, Adult. - Prescriptions for Levaquin 750 mg Oral Tablet - take 1 tablet by ORAL route once daily for 5 days; 5 tablet. Bentyl 20 mg Oral Tablet - take 1 tablet by ORAL route every 6 hours As needed; 20 tablet. - Medication Reconciliation Form, Thank You Letter, Antibiotic Education, Prescription Opioid Use form. - Follow up: Emergency Department; When: As needed; Reason: Worsening of condition. Follow up: Private Physician; When: 2 - 3 days; Reason: Recheck today's complaints, Continuance of care, Re-evaluation by your physician. - Problem is new. - Symptoms have improved. Signatures: Dispatcher [employer] [facility] Julio Pritchett, PHOTONICS TECHNICIAN PHOTONICS TECHNICIAN pm1 Amberly Mcclure, RN RN Coral Mccord Arpan Lomeli MD MD tw4 Corrections: (The following items were deleted from the chart) 01/12 20:02 18:19 Abdomen Pelvis W [id number] ordered. [facility] 22:30 21:16 01/12/2020 21:16 Discharged to Home. Impression: Unspecified abdominal pain. wh Condition is Stable. Forms are Medication Reconciliation Form, Thank You Letter, Antibiotic Education, Prescription Opioid Use. Follow up: Emergency Department; When: As needed; Reason: Worsening of condition. Follow up: Private Physician; When: 2 - 3 days; Reason: Recheck today's complaints, Continuance of care, Re-evaluation by your physician. Problem is new. Symptoms have improved. pm1
--- NOTE | 2020-01-12 21:17 | ER ---
Nurse's Notes [facility] Name: Rochelle Henderson Age: 64 yrs Sex: Female : 1955 Arrival Date: 01/12/2020 Time: 17:52 Bed 20 Private MD: Diagnosis: Unspecified abdominal pain Presentation: 01/12 18:02 Presenting complaint: Caregiver reports pt has been c/o of right sided abdominal pain. hb Transition of care: patient was not received from another setting of care. Onset of symptoms was January 12, 2020. Risk Assessment: Do you want to hurt yourself or someone else? Patient reports no desire to harm self or others. Care prior to arrival: None. 18:02 Method Of Arrival: Ambulatory hb 18:02 Acuity: OPAL 3 hb 18:25 Initial Sepsis Screen: Does the patient meet any 2 criteria? No. Patient's initial ca1 sepsis screen is negative. Does the patient have a suspected source of infection? No. Patient's initial sepsis screen is negative. Historical: - Allergies: 18:04 Biaxin; hb 18:04 Sulfa (Sulfonamide Antibiotics); hb 18:04 Shellfish Containing Products; hb - PMHx: 18:04 Dementia; hb - Immunization history:: Adult Immunizations up to date. - Coronavirus screen:: The patient has NOT traveled to [place] in the past 14 days. The patient has NOT had contact with known/suspected case of Coronavirus? Proceed with normal triage procedures. - Social history:: Smoking status: Patient denies any tobacco usage or history of. - Ebola Screening: : No symptoms or risks identified at this time. Screenin:25 Abuse screen: Denies threats or abuse. Denies injuries from another. Nutritional ca1 screening: No deficits noted. Tuberculosis screening: No symptoms or risk factors identified. Fall Risk Secondary diagnosis (15 points) dementia, IV access (20 points). Mental Status- Overestimates/Forgets Limitations (15 pts.). Total Bullock Fall Scale indicates High Risk Score (45 or more points). Fall prevention measures have been instituted. Side Rails Up X 2 Frequent Obs/Assessments Occuring Family Present and informed to notify staff if the need to leave the bedside As available patient and family educated on Fall Prevention Program and Strategies. Assessment: 18:25 General: Appears in no apparent distress. comfortable, Behavior is uncooperative. ca1 18:25 Pain: Complains of pain in right upper quadrant Pain began 2-3 days ago. Reports of ca1 pain reported by daughters at bedside Is intermittent. Neuro: Level of Consciousness is awake, alert, Oriented to Pt has severe dementia. . Cardiovascular: Heart tones S1 S2 present Capillary refill < 3 seconds Patient's skin is warm and dry. Respiratory: Airway is patent Respiratory effort is even, unlabored, Respiratory pattern is regular, symmetrical, Breath sounds are clear bilaterally. GI: Abdomen is round non-distended, Bowel sounds present X 4 quads. Abd is soft X 4 quads Abdomen is tender to palpation in right upper quadrant. : Urine is clear. EENT: No signs and/or symptoms were reported regarding the EENT system. Derm: Skin is intact, is healthy with good turgor, Skin is pink, warm \T\ dry. Musculoskeletal: Circulation, motion, and sensation intact. Capillary refill < 3 seconds. 19:10 Reassessment: Patient appears in no apparent distress at this time. No changes from previously documented assessment. Patient and/or family updated on plan of care and expected duration. Pain level reassessed. 20:19 Reassessment: Patient appears in no apparent distress at this time. No changes from previously documented assessment. Patient and/or family updated on plan of care and expected duration. Pain level reassessed. 21:30 Reassessment: Patient appears in no apparent distress at this time. No changes from previously documented assessment. Patient and/or family updated on plan of care and expected duration. Pain level reassessed. 22:10 Reassessment: Family asking to speak with provider. Provider at bedside explaining POC, wh family refusing ABx and mode of treatment. Vital Signs: 18:03 BP 121 / 69; Pulse 72; Resp 16; Temp 97.1; Pulse Ox 99% on R/A; Weight 83.91 kg; Height hb 6 ft. (182.88 cm); Pain 2/10; 19:15 BP 112 / 82; Pulse 78; Resp 18; Pulse Ox 98% on R/A; wh 20:15 BP 114 / 98; Pulse 76; Resp 18; Pulse Ox 98% ; wh 21:30 BP 139 / 77; Pulse 74; Resp 18; Pulse Ox 98% on R/A; wh 18:03 Body Mass Index 25.09 (83.91 kg, 182.88 cm) hb 18:03 Angelica (FACES) hb ED Course: 17:52 Patient arrived in ED. ag5 18:03 Triage completed. hb 18:03 Arm band placed on. hb 18:08 Julio Pritchett NP is PHCP. pm1 18:08 Arpan Lomeli MD is Attending Physician. pm1 18:25 Patient has correct armband on for positive identification. Placed in gown. Bed in low ca1 position. Call light in reach. Side rails up X2. Adult w/ patient. Pulse ox on. NIBP on. Warm blanket given. 18:25 No provider procedures requiring assistance completed. Initial lab(s) drawn. Inserted ca1 saline lock: 22 gauge in left forearm, using aseptic technique. Blood collected. 18:45 Straight cath inserted, using sterile technique, 16 Fr. Specimen obtained. Returned ca1 clear yellow urine. Patient tolerated well. 18:45 Urine collected: straight cath specimen, clear, Amount Returned: 20mL. ca1 18:46 Radiology exam delayed due to lab results not completed at this time. (BUN/Creatinine). 2 19:14 Janiya Jacob, RN is Primary Nurse. ca1 21:31 US Abdomen Limited In Process Unspecified. EDMS 21:41 IV discontinued, intact, bleeding controlled, No redness/swelling at site. wh Administered Medications: 19:27 Drug: NS 0.9% 1000 ml Route: IV; Rate: 1000 ml; Site: left forearm; 21:41 Follow up: Response: No adverse reaction; IV Status: Completed infusion 21:38 Not Given (Patient Refused; family refused): Rocephin 1 grams IV at calculated rate once; Given slow IV push per pharmacy instructions 21:38 Drug: Bentyl 20 mg Route: PO; 21:41 Follow up: Response: No adverse reaction Outcome: 21:16 Discharge ordered by . pm1 21:40 Discharged to home via wheelchair, with family, Family driving Pt to [place] 21:40 Condition: stable 21:40 Discharge instructions given to family, Instructed on discharge instructions, follow up and referral plans. medication usage, POC Demonstrated understanding of instructions, follow-up care, medications, POC Prescriptions given X 2. 22:30 Patient left the ED. Signatures: Dispatcher [employer] EDNM Julio Pritchett NP REAL ESTATE MANAGER pm1 Amberly Mcclure, JENNYFER RN hb Natalya Dalton vm2 Coral Bowling Janiya Jacob RN RN ca1 Fracisco Watts ag5 Corrections: (The following items were deleted from the chart) 19:19 18:25 Neuro: Level of Consciousness is awake, alert, ca1 ca1
[2020-01-12] MEDS ORDERED: DICYCLOMINE HCL 10 MG CAP ONE (21:36)
--- NOTE | 2020-01-12 23:09 | RAD REPORT ---
EXAM DESCRIPTION: US - Abdomen Exam Limited - 01/12/2020 9:18 pm CLINICAL HISTORY: RUQ pain COMPARISON: ABDOMINAL EXAM LIMITED dated 03/26/2013 FINDINGS: The gallbladder demonstrates no gallstones. No pericholecystic fluid or gallbladder wall t hickening. The common bile duct is normal measuring 4 mm. The liver demonstrates no findings of intrahepatic biliary dilatation. IMPRESSION: Unremarkable examination.
[2020-01-13 00:47] VITALS: TEMP 97.1
[2020-01-13 00:48] VITALS: O2SAT 98
[2020-01-13 00:51] VITALS: BP 139/77
== END 2020-01-12 22:30 | disposition home or self-care (01) ==
LOC: ER 17:50
DX: R10.11 Right upper quadrant pain (principal); F03.90 Unspecified dementia, unspecified severity, without behavioral disturbance, psychotic disturbance, mood disturbance, and anxiety; K59.00 Constipation, unspecified
CPT/HCPCS: 96361; 85025; 80048; 36415; 80076; 83690; 74176; 76705; 51702; 96360; 99284; J7030; 81003; 81015

== ENCOUNTER 2021-07-06 21:35 | Emergency (ER) | payer OTHER ==
--- OUTSIDE RECORDS SUMMARY | 2021-07-06 21:38 | XMS REPORT | Continuity of Care Document ---
:1955 Author Organization [facility] t Address [address] [place] [address] Care Team Providers Name Role Phone Jessee MARROQUIN Primary Care Physician Frankie BURGER Attending Clinician Unavailable Payers Payer Name Policy Type Policy Effective Date Expiration Date Sour ce Number AETNAAETNA [id number] 2000 [employer] HMO,POS,EPO, 00:00:00 [facility]/[id number]/ 11/2000-PresentHM O Problems This patient has no known problems. Allergies, Adverse Reactions, Alerts Allergy Allergy Status Severity Reaction(s) Onset Inactive Treating Comm ents Source Name Type Date Date Clinician Shrimp Propensi Active [facility] ty to [facility] adverse 00:00: Hospita reaction 00 l s to drug Clarithr Propensi Active 2016-11 Method i omycin ty to 0-03 st adverse 00:00: Hospita reaction 00 l s to drug Sulfa Propensi Active Itching 2016-11 [facility] (Sulfona ty to 0-03 st mide adverse 00:00: Hospita Antibiot reaction 00 l ics) s to drug Family History Family Member Diagnosis Comments Start Date Stop Date Source Natural daughter No Known Problems [facility] Natural father Colon cancer [facility] Maternal aunt Dementia [facility] Maternal aunt Hypertension [facility] Maternal Heart disease [facility] Maternal Hypertension [facility] Maternal Stroke [facility] Maternal uncle Dementia [facility] Maternal uncle Parkinsonism [facility] Maternal uncle Diabetes [facility] Maternal uncle [facility] Natural mother [facility]'s [facility] Natural mother Glaucoma [facility] Natural mother Hy[facility] Natural mother Transient ischemic [facility] Paternal [facility] Natural son No Known Problems [facility] Cousin Frontotemporal Confucianist dementia [facility] Social History Social Habit Start Date Stop Date Quantity Comments Source Tobacco use and 2019-12-09 2019-12-09 Never used [facility] exposure 00:00:00 00:00:00 Hospital Alcohol intake 2019-12-09 2019-12-09 Current Confucianist 00:00:00 00:00:00 non-drinker of Hospital alcohol (finding) Sex Ass[birth year] At [birth year] [facility] 00:00:00 00:00:00 Hospital Smoking Status Start Date Stop Date Source Never smoker [facility] Medications Ordered Filled Start Stop Current Ordering Indication Dosage Frequency Signature Comments Components Source Medication Medication Date Date Medication? Clinician (SIG) Name Name OLANZapine 2019-0 Yes [id number] 5mg QD Take 1 [facility] zydis 1-20 tablet (5 st (ZyPREXA) 5 00:00: mg total) H ospita MG 00 by mouth l disintegrat nightly. ing tablet melatonin 3 2019-0 Yes 10mg QD Take 10 mg [facility] mg tablet 1-[address] 18:47: nightly. Hospita 57 l sertraline 2019-0 Yes [id number] 200mg QD Take 2 [facility] (ZOLOFT) 1-[address] 100 MG 00:00: (200 mg Hospita tablet 00 total) by l mouth daily. Procedures This patient has no known procedures. Plan of Care Planned Activity Planned Date Details Comments Source Future Scheduled Test COVID-19 VACCINE (1) [facility] [code = COVID-19 VACCINE (1)] Future Scheduled Test Hepatitis C screening [facility] (procedure) [code = 942901742] Future Scheduled Test Screening for malignant [facility] neoplasm of cervix (procedure) [code = 523011680] Future Scheduled Test BREAST CANCER SCREENING [facility] [code = BREAST CANCER SCREENING] Future Scheduled Test COLONOSCOPY SCREENING [facility] [code = COLONOSCOPY SCREENING] Future Scheduled Test SHINGLES VACCINES (#1) [facility] [code = SHINGLES VACCINES (#1)] Future Scheduled Test INFLUENZA VACCINE [code [facility] = INFLUENZA VACCINE] Encounters Start End Encounter Admission Attending Care Care Encounter Source Date/Time Date/Time Type Type Clinicians Facility Department ID 2020-12-21 2020-12-21 Outpatient [facility] [id number] [place] 00:00:00 00:00:[address] 2020-12-21 2020-12-21 Outpatient [facility] [id number] [place] [address] 00:00:00 00:00:[address] 2020-12-21 2020-12-21 Documentat Arbones, 1.2.840.1 [id number] [facility] 00:00:00 00:00:[address] ion Natalya [address]851.1.[address] 3.430.2.7 Hospit a .3.615899 l .8 2020-12-21 2020-12-21 Travel 1.2.840.1 [id number] [facility] 00:00:00 00:00:[address] 3.430.2.7 0.2.7.3.698 Ho spita .3.220570 084.8 l .8 2020-12-17 2020-12-17 Outpatient [facility] [id number] [place] 00:00:00 00:00:[address] 2020-12-17 2020-12-17 Outpatient [facility] [id number] [place] [address] 00:00:00 00:00:[address] 2020-12-17 2020-12-17 Documentat Arbones, 1.2.840.1 [id number] [facility] 00:00:00 00:00:[address] ion Natalya [address]20.1.[address] 3.430.2.7 Hospit a .3.339465 l .8 2020-12-17 2020-12-17 Travel 1.2.840.1 [id number] [id number] [facility] 00:00:00 00:00:[address] 3.430.2.7 0.2.7.3.698 [facility] .3.765598 084.8 l .8 Results This patient has no known results.
--- NOTE | 2021-07-06 23:04 | EDPHYS ---
Physician Documentation [facility] Name: Rochelle Henderson Age: 65 yrs Sex: Female : 1955 Arrival Date: 07/06/2021 Time: 21:39 Bed 8 Private MD: ED Physician Rl Sheth HPI: 07/06 21:49 This 65 yrs old Female presents to ER via EMS with complaints of Fall, head rn injury. 21:57 The patient or guardian reports injury. The complaints affect the occipital area. rn Context of injury: The problem was sustained at home, resulted from a fall, from a standing position. Onset: The symptoms/episode began/occurred just prior to arrival. Associated signs and symptoms: Loss of consciousness: This patient did not experience any loss of consciousness. Pertinent negatives: the patient has not experienced a loss of conciousness, neck pain, seizure, vomiting, generalized weakness. Severity of symptoms: At their worst the symptoms were mild, in the emergency department the symptoms are unchanged. It is unknown whether or not the patient has had similar symptoms in the past. The patient has not recently seen a physician. Daughter states patient lost balance, fell backward, hit head on sheet rock. No LOC. No blood thinners. No other injuries. Patient with frontotemporal dementia, cannot give much of a history, most of history is from daughter and EMS. Patient also on hospice care. Historical: - Allergies: 21:45 Biaxin; zb 21:45 Shellfish Containing Products; zb 21:45 Sulfa (Sulfonamide Antibiotics); zb - Home Meds: 21:45 Melatonin Oral [Active]; sertraline oral [Active]; olanzapine oral [Active]; Lorazepam zb Oral [Active]; Pepcid Oral [Active]; - PMHx: 21:45 Dementia; Lupus erythematosus; zb - Immunization history:: Adult Immunizations up to date, Client reports having NOT received the Covid vaccine. - Social history:: Smoking status: Patient denies any tobacco usage or history of. - Family history:: not pertinent. - Hospitalizations: : No recent hospitalization is reported. ROS: 21:57 Unable to obtain ROS due to baseline dementia. rn Exam: 21:57 Constitutional: This is a well developed, well nourished patient who is awake, alert, rn and in no acute distress. Head/Face: Normocephalic, small occipital hematoma/abrasion, no active bleeding, no depression or laceration. Eyes: Periorbital areas with no swelling, redness, or edema. ENT: No signs of oral trauma. Neck: No midline cervical tenderness. No swelling or crepitus. Chest/axilla: No rib tenderness or crepitus. Cardiovascular: Regular rate and rhythm. No pulse deficits. Respiratory: No increased work of breathing, no retractions or nasal flaring. Abdomen/GI: Soft, non-tender, no ecchymosis Back: No spinal tenderness. No costovertebral tenderness. Full range of motion. Skin: Warm, dry no laceration MS/ Extremity: Pulses equal, no cyanosis. Neurovascular intact. Full, normal range of motion. Equal circumference. Neuro: Awake and alert, mumbles, moves all 4 extremities. Vital Signs: 21:43 BP 105 / 78; Pulse 92; Resp 16; Temp 98.8; Pulse Ox 96% on R/A; Weight 86.18 kg; Height zb 6 ft. 0 in. (182.88 cm); 21:43 Body Mass Index 25.77 (86.18 kg, 182.88 cm) zb Disney Coma Score: 21:57 Eye Response: spontaneous(4). Verbal Response: oriented(5). Motor Response: obeys rn commands(6). Total: 15. 22:59 Eye Response: spontaneous(4). Verbal Response: confused(4). Motor Response: localizes rn pain(5). Total: 13. MDM: 21:39 Patient medically screened. rn 22:59 Differential diagnosis: Contusion of Hematoma on Intracranial bleed- Concussion rn cerebral contusion. Data reviewed: vital signs, nurses notes, radiologic studies, CT scan, and as a result, I will admit patient. Test interpretation: by ED physician or midlevel provider: CT head shows parafalcine subdural and intraparenchymal hemorrhage. Counseling: I had a detailed discussion with the patient and/or guardian regarding: the historical points, exam findings, and any diagnostic results supporting the discharge/admit diagnosis, radiology results, the need for further work-up and treatment in the hospital, the need to transfer to another facility, [facility] does not immediately have the required specialist. Special discussion:. ED course: Patient with traumatic subdural and intraparenchymal hemorrhage. Spoke with daughter who spoke with rest of family, given patient already on hospice and they do not plan on surgery even if progresses and needs it, family wants to take her home and continue hospice care and keep her comfortable. They understand risks of taking her home and I explained all possibilities that they could run into.. 07/06 21:40 Order name: CT Head C Spine rn Administered Medications: 23:42 Not Given (Other Intervention Used): morphine 2 mg IVP once; RASS on ADMIN: Combtv4, ea Very Agttd3, Agttd2, Rstlss1, AlertClm0, Drwsy-1, Lt Sdtn-2, Mod Sdtn-3, Dp Sdtn-4, UnArsble-5 23:42 Not Given (Other Intervention Used): Zofran (Ondansetron) 4 mg IVP once; over 2 minutes ea 23:43 Drug: morphine 2 mg Route: IM; Site: left deltoid; ea 23:44 Follow up: Response: No adverse reaction ea 23:43 Drug: Zofran (ondansetron) 4 mg Route: IM; Site: right deltoid; ea 23:44 Follow up: Response: No adverse reaction ea Disposition Summary: 07/06/21 23:03 Discharge Ordered Location: Home rn Problem: new rn Symptoms: are unchanged rn Condition: Stable rn Diagnosis - Traumatic subdural hemorrhage rn - Traumatic hemorrhage of cerebrum, unspecified, without loss of consciousness, rn initial encounter Followup: rn - With: Private Physician - When: As needed - Reason: Recheck today's complaints, Re-evaluation by your physician Discharge Instructions: - Discharge Summary Sheet rn - Head Injury, Adult rn - Intracerebral Hemorrhage rn - Subdural Hematoma rn Forms: - Medication Reconciliation Form rn - Thank You Letter rn - 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
--- NOTE | 2021-07-06 23:04 | ER ---
Nurse's Notes [facility] Name: Rochelle Henderson Age: 65 yrs Sex: Female : 1955 Arrival Date: 07/06/2021 Time: 21:39 Bed 8 Private MD: Diagnosis: Traumatic subdural hemorrhage;Traumatic hemorrhage of cerebrum, unspecified, without loss of consciousness, initial encounter Presentation: 07/06 21:43 Chief complaint: EMS states: Witness fall from home. Patient hit the back of her head zb on the dry wall. No LOC or blood thinners. Unable to verbal if she is in pain. hx of dementia. Daughter at bedside APO. Coronavirus screen: At this time, the client does not indicate any symptoms associated with coronavirus-19. Ebola Screen: No symptoms or risks identified at this time. Initial Sepsis Screen: Does the patient meet any 2 criteria? No. Patient's initial sepsis screen is negative. Does the patient have a suspected source of infection? No. Patient's initial sepsis screen is negative. Risk Assessment: Do you want to hurt yourself or someone else? Patient reports no desire to harm self or others. Onset of symptoms was July 06, 2021. 21:43 Method Of Arrival: EMS: [facility] zb 21:43 Acuity: OPAL 3 zb Triage Assessment: 21:47 General: Appears in no apparent distress. Behavior is flat. Pain: Unable to use pain zb scale. Does not appear to understand pain scale. Neuro: Level of Consciousness is awake, alert, Oriented to none dementia . Moves all extremities. Full function Speech aphasic . Cardiovascular: Patient's skin is warm and dry. Respiratory: Airway is patent. GI:. Derm: Bruising that is bright red, on occipital area. Musculoskeletal: Range of motion: intact in all extremities. Historical: - Allergies: 21:45 Biaxin; zb 21:45 Shellfish Containing Products; zb 21:45 Sulfa (Sulfonamide Antibiotics); zb - Home Meds: 21:45 Melatonin Oral [Active]; sertraline oral [Active]; olanzapine oral [Active]; Lorazepam zb Oral [Active]; Pepcid Oral [Active]; - PMHx: 21:45 Dementia; Lupus erythematosus; zb - Immunization history:: Adult Immunizations up to date, Client reports having NOT received the Covid vaccine. - Social history:: Smoking status: Patient denies any tobacco usage or history of. - Family history:: not pertinent. - Hospitalizations: : No recent hospitalization is reported. Screenin:49 Abuse screen: Denies threats or abuse. Denies injuries from another. Nutritional zb screening: No deficits noted. Tuberculosis screening: No symptoms or risk factors identified. Fall Risk Fall in past 12 months (25 points). Secondary diagnosis (15 points) dementia, No IV (0 pts). Ambulatory Aid- Crutches/Cane/Walker (15 pts). Gait- Weak (10 pts.). Mental Status- Overestimates/Forgets Limitations (15 pts.). Total Bullock Fall Scale indicates High Risk Score (45 or more points). Fall prevention measures have been instituted. Side Rails Up X 2 Placed Close to Nursing Station Frequent Obs/Assessments Occuring Family Present and informed to notify staff if the need to leave the bedside As available patient and family educated on Fall Prevention Program and Strategies. Assessment: 21:30 Reassessment: ECP at bedside discussing care. zb 21:51 Reassessment: Ct taking patient. zb Vital Signs: 21:43 BP 105 / 78; Pulse 92; Resp 16; Temp 98.8; Pulse Ox 96% on R/A; Weight 86.18 kg; Height zb 6 ft. 0 in. (182.88 cm); 21:43 Body Mass Index 25.77 (86.18 kg, 182.88 cm) zb Daya Coma Score: 21:57 Eye Response: spontaneous(4). Verbal Response: oriented(5). Motor Response: obeys rn commands(6). Total: 15. 22:59 Eye Response: spontaneous(4). Verbal Response: confused(4). Motor Response: localizes rn pain(5). Total: 13. ED Course: 21:39 Patient arrived in ED. mw2 21:39 Rl Sheth MD is Attending Physician. rn 21:42 Jordana Perkins RN is Primary Nurse. zb 21:45 Triage completed. zb 21:50 Arm band placed on. zb 21:50 Patient has correct armband on for positive identification. Placed in gown. Bed in low zb position. Call light in reach. Adult w/ patient. Pulse ox on. NIBP on. Door closed. Noise minimized. 22:02 CT Head C Spine In Process Unspecified. EDMS 23:43 No provider procedures requiring assistance completed. Patient did not have IV access ea during this emergency room visit. Administered Medications: 23:42 Not Given (Other Intervention Used): morphine 2 mg IVP once; RASS on ADMIN: Combtv4, ea Very Agttd3, Agttd2, Rstlss1, AlertClm0, Drwsy-1, Lt Sdtn-2, Mod Sdtn-3, Dp Sdtn-4, UnArsble-5 23:42 Not Given (Other Intervention Used): Zofran (Ondansetron) 4 mg IVP once; over 2 minutes ea 23:43 Drug: morphine 2 mg Route: IM; Site: left deltoid; ea 23:44 Follow up: Response: No adverse reaction ea 23:43 Drug: Zofran (ondansetron) 4 mg Route: IM; Site: right deltoid; ea 23:44 Follow up: Response: No adverse reaction ea Outcome: 23:03 Discharge ordered by . rn 23:43 Discharged to home ambulatory, with family. ea 23:43 Condition: stable 23:43 Discharge instructions given to family, Instructed on discharge instructions, follow up and referral plans. medication usage. 23:44 Patient left the ED. ea Signatures: Dispatcher [employer] EDMS Rl Sheth MD MD rn Antunez, Elena RN Rita Jhaveri ea [facility] Jordana Perkins RN RN zb
[2021-07-06] MEDS ORDERED: MORPHINE 2 MG/ML SYR ONE (23:43)
[2021-07-06] MEDS ORDERED: ONDANSETRON 4 MG/2 ML VIAL ONE (23:43)
[2021-07-06 23:54] VITALS: BP 105/78; TEMP 98.8; O2SAT 96
--- NOTE | 2021-07-07 12:15 | RAD REPORT ---
EXAM DESCRIPTION: CT - Head C Spine Mpr Wo Con - 07/07/2021 6:32 am CLINICAL HISTORY: Fall, head injury. TECHNIQUE: Axial, coronal, and sagittal images through the brain were performed in the absence of in travenous contrast. CT of the cervical spine was performed without contrast. Axial, coronal, and sagittal reconstructions were created and sent to PACS. These exams were performed according to our departmental dose-optimization program which includes use of Automated Exposure Control, adjustment of the mA and/or kV according to patient size and/or use o f iterative reconstruction technique. COMPARISON: None. FINDINGS: CT Head: Small foci of high density in the midline and right and left frontal lobes, favored a combination of acute subdural, parenchymal, and subarachnoid hemorrhage. A suspected focus of subdural hemorrhage me asures 2.5 x 0.9 cm in the medial right frontal region adjacent to the falx. Small additional thin ac [place] subdural hemorrhage layers along the midline falx. Faint high density foci more inferiorly in the anterior bilateral midline frontal lobes, and anterior inferior right frontal lobe (axial series 201 , image 15). Also on this image, there is a tiny high density focus in the right temporal lobe (where there is minimal brain parenchyma). No midline shift. The basal cisterns are patent. There is diffus e age-appropriate atrophy seen throughout the brain parenchyma. Mild periventricular white matter sophie nges are seen to be present and there is prominent ex vacuo dilatation of the ventricular system, out of proportion to the parenchymal atrophy. There is no mass or mass effect. Tiny air-fluid level in the right maxillary sinus. The remaining visualized paranasal sinuses and mas toid air cells are patent. Small soft tissue contusion along the left posterior parietal region. No f racture is identified. CT cervical spine: No acute osseous abnormality identified. Vertebral body height and alignment are maintained. No atlan todental interval widening. Atlantoaxial alignment is maintained. Tiny multilevel posterior disc oste ophyte complexes with no significant central canal or neuroforaminal narrowing throughout the cervica l spine. Paraspinal soft tissues: Mild scarring in the lung apices. Mild calcific atherosclerosis. IMPRESSION: 1. Small left posterior parietal scalp soft tissue contusion, with mild intra-axial an d extra-axial hemorrhage in a contrecoup pattern. 2. No midline shift. The basal cisterns are patent. 3. No acute osseous abnormality identified in the cervical spine. Minimal disc degenerative changes . 4. Tiny air-fluid level in the right maxillary sinus. Correlate for acute sinusitis. THIS REPORT CONTAINS FINDINGS THAT MAY BE CRITICAL TO PATIENT CARE: The findings were verbally discu ssed via telephone conference with Dr. Rl Sheth on 07/06/2021 10:50 PM CDT. The results were acknow ledged and understood. Electronically signed by: Joi Ayon MD 07/06/2021 10:52 PM CDT Due to temporary technical issues with the PACS/Fluency reporting system, reports are being signed by the in house radiologist without review as a courtesy to ensure prompt reporting. The interpreting r adiologist is fully responsible for the content of the report.
== END 2021-07-06 23:44 | disposition home or self-care (01) ==
LOC: ER 21:35
DX: S06.360A Traumatic hemorrhage of cerebrum, unspecified, without loss of consciousness, initial encounter (principal); W18.39XA Other fall on same level, initial encounter; Y92.009 Unspecified place in unspecified non-institutional (private) residence as the place of occurrence of the external cause; F03.90 Unspecified dementia, unspecified severity, without behavioral disturbance, psychotic disturbance, mood disturbance, and anxiety; Z88.2 Allergy status to sulfonamides; Z88.6 Allergy status to analgesic agent; Z91.013 Allergy to seafood
CPT/HCPCS: 70450; 72125; 96372; 99284; J2270; J2405